=== PATIENT | female | born 1955 | race African-American/Black ===

== ENCOUNTER 2019-08-26 16:27 | Inpatient (IN) | payer MEDICARE, MEDICAID ==
[~2019-08-26] VITALS: Ht 162.6 cm; Wt 67.8 kg
[2019-08-26] MEDS ORDERED: KETOROLAC 30MG/ML VIAL IV ONE (17:00)
[2019-08-26 17:15] LABS: BASOPHILS % 0.8 % (0.0-2.0); EOSINOPHILS % 1.9 % (0.0-5.0); HEMATOCRIT. 44.9 % (36.0-48.0); HEMOGLOBIN. 14.7 g/dL (12.0-16.0); LYMPHOCYTES % 39.3 % (20.0-50.0); MEAN CORPUSCULAR HEMOGLOBIN 28.2 pg (28.0-32.0); MEAN CORPUSCULAR VOLUME 86.1 fL (81.0-99.0); MEAN PLATELET VOLUME 8.1 fl (7.4-10.4); MONOCYTES % 4.9 % (2.0-8.0); NEUTROPHILS % 53.1 % (40.0-76.0); PLATELET 286 x1000/uL (130-400); RED BLOOD CELL COUNT 5.22 mill/uL (4.2-5.4); RED CELL DISTRIBUTION WIDTH 13.5 % (11.6-14.6)
[2019-08-26 17:22] LABS: CHLORIDE 108 mEq/L (98-107)
[2019-08-26 17:28] LABS: PARTIAL THROMBOPLASTIN TIME 30.3 sec (23.4-31.0); PROTHROMBIN TIME 10.1 sec (9.6-11.0)
[2019-08-26 17:35] LABS: T4 FREE 1.13 ng/dL (0.76-1.46)
[2019-08-26] MEDS ORDERED: POTASSIUM CHLORIDE 20MEQ TABLET SR PO ONE (18:00)
[2019-08-26] MEDS ORDERED: ENOXAPARIN 60MG/0.6ML SYR SUBCUT ONE (18:15)
[2019-08-26] MEDS ORDERED: NITROGLYCERIN OINT 1GM/INCH UDPKT TD ONE (18:15)
[2019-08-26 20:30] VITALS: BP 129/63
[2019-08-26] MEDS ORDERED: DIPHENHYDRAMINE 50MG/ML VIAL IV PRN (20:45)
[2019-08-26] MEDS ORDERED: MAGNESIUM/ALUMINUM HYDROXIDE/SIMETHICONE 30ML UDC PO PRN (20:45)
[2019-08-26] MEDS ORDERED: ONDANSETRON HCL 4MG/2ML INJ IV PRN (20:45)
[2019-08-26] MEDS ORDERED: DOCUSATE SODIUM 100MG CAPSULE PO PRN (20:45)
[2019-08-26] MEDS ORDERED: CLONIDINE 0.1MG TABLET PO PRN (20:45)
[2019-08-26] MEDS ORDERED: IPRATROPIUM/ALBUTEROL 0.5-3(2.5)MG/3ML NEB HHN PRN (20:45)
[2019-08-26 21:32] VITALS: BP 129/63
[2019-08-26] MEDS ORDERED: ERGOCALCIFEROL 50000UNITS CAPSULE PO SCH (22:00)
[2019-08-27] VITALS: BP 116/47
[2019-08-27] MEDS: ATORVASTATIN CALCIUM 20MG TABLET PO SCH ×2 (00:24→21:15)
[2019-08-27] MEDS: ENOXAPARIN 40MG/0.4ML SYR SUBCUT SCH ×2 (00:25→21:14)
[2019-08-27] MEDS: HYDROCODONE/ACETAMINOPHEN 5/325MG TABLET PO PRN ×2 (03:55→11:19)
[2019-08-27 07:15] LABS: BASOPHILS % 0.4 % (0.0-2.0); EOSINOPHILS % 3.5 % (0.0-5.0); HEMATOCRIT. 37.1 % (36.0-48.0); LYMPHOCYTES % 52.7 % (20.0-50.0); MEAN CORPUSCULAR VOLUME 86.7 fL (81.0-99.0); MEAN PLATELET VOLUME 8.1 fl (7.4-10.4); MONOCYTES % 8.2 % (2.0-8.0); NEUTROPHILS % 35.2 % (40.0-76.0); PLATELET 232 x1000/uL (130-400); RED BLOOD CELL COUNT 4.28 mill/uL (4.2-5.4); RED CELL DISTRIBUTION WIDTH 13.2 % (11.6-14.6)
[2019-08-27 08:00] VITALS: BP 134/63
[2019-08-27 09:06] LABS: CHLORIDE 113 mEq/L (98-107)
[2019-08-27 09:13] LABS: LDL CHOLESTEROL 55 mg/dL (5-100)
[2019-08-27 09:14] LABS: HDL CHOLESTEROL 38 mg/dL (40-59)
[2019-08-27 09:15] LABS: T4 FREE 0.99 ng/dL (0.76-1.46)
[2019-08-27 09:18] LABS: PHOSPHORUS 4.2 mg/dL (2.5-4.9)
[2019-08-27] MEDS: HYDROCHLOROTHIAZIDE 25MG TABLET PO SCH (09:43)
[2019-08-27] MEDS: BENAZEPRIL 10MG TABLET PO SCH (09:44)
[2019-08-27 12:00] VITALS: BP 131/45
[2019-08-27] MEDS: ASPIRIN 81MG EC TABLET PO SCH (14:40)
[2019-08-27] MEDS: DILTIAZEM HCL 30MG TABLET PO SCH ×2 (14:40→21:14)
[2019-08-27 16:00] VITALS: BP 156/77
[2019-08-27 18:26] LABS: *AMPHETAMINES SCREEN URINE NEGATIVE (NEGATIVE); *BARBITURATES SCREEN URINE NEGATIVE (NEGATIVE); *BENZODIAZEPINES SCREEN URINE NEGATIVE (NEGATIVE)
[2019-08-27 18:27] LABS: *COCAINE SCREEN URINE NEGATIVE (NEGATIVE); CANNABINOID URINE SCREEN NEGATIVE (NEGATIVE); METHADONE URINE SCREEN NEGATIVE (NEGATIVE); OPIATES URINE SCREEN PRESUMTIVE POSITIVE (NEGATIVE); PHENCYCLIDINE URINE SCREEN NEGATIVE (NEGATIVE)
[2019-08-27 20:00] VITALS: BP 149/78
[2019-08-27] MEDS: METRONIDAZOLE 500MG TABLET PO SCH (21:15)
[2019-08-27] MEDS: ACETAMINOPHEN 325MG TABLET PO PRN (21:15)
[2019-08-28 00:28] VITALS: BP 145/82
[2019-08-28 04:00] VITALS: BP 145/79
[2019-08-28] MEDS: DILTIAZEM HCL 30MG TABLET PO SCH ×3 (06:01→21:06)
[2019-08-28 07:00] LABS: BASOPHILS % 0.3 % (0.0-2.0); HEMATOCRIT. 36.8 % (36.0-48.0); HEMOGLOBIN. 12.2 g/dL (12.0-16.0); LYMPHOCYTES % 46.6 % (20.0-50.0); MEAN CORPUSCULAR HEMOGLOBIN 28.2 pg (28.0-32.0); MEAN CORPUSCULAR VOLUME 85.4 fL (81.0-99.0); MEAN PLATELET VOLUME 8.5 fl (7.4-10.4); MONOCYTES % 9.8 % (2.0-8.0); NEUTROPHILS % 39.3 % (40.0-76.0); PLATELET 238 x1000/uL (130-400); RED BLOOD CELL COUNT 4.32 mill/uL (4.2-5.4); RED CELL DISTRIBUTION WIDTH 13.4 % (11.6-14.6)
[2019-08-28 07:11] LABS: CHLORIDE 111 mEq/L (98-107)
[2019-08-28 08:35] VITALS: BP 142/71
[2019-08-28] MEDS: BENAZEPRIL 10MG TABLET PO SCH ×2 (09:38→21:06)
[2019-08-28] MEDS: METRONIDAZOLE 500MG TABLET PO SCH ×2 (09:38→21:05)
[2019-08-28] MEDS: NICOTINE 14MG PATCH TD SCH (09:38)
[2019-08-28] MEDS: ASPIRIN 81MG EC TABLET PO SCH (09:38)
[2019-08-28] MEDS: HYDROCHLOROTHIAZIDE 25MG TABLET PO SCH (09:41)
[2019-08-28 12:19] VITALS: BP 153/75
[2019-08-28] MEDS ORDERED: MAGNESIUM 1 G PREMIX 100 ML IV NR (12:45)
[2019-08-28 15:59] VITALS: BP 148/65
[2019-08-28] MEDS: ACETAMINOPHEN 325MG TABLET PO PRN (16:29)
[2019-08-28 20:44] VITALS: BP 151/81
[2019-08-28] MEDS: IPRATROPIUM/ALBUTEROL 0.5-3(2.5)MG/3ML NEB HHN SCH (21:00)
[2019-08-28] MEDS: ATORVASTATIN CALCIUM 20MG TABLET PO SCH (21:05)
[2019-08-28] MEDS: ENOXAPARIN 40MG/0.4ML SYR SUBCUT SCH (21:05)
[2019-08-29] VITALS: BP 138/63
[2019-08-29] MEDS: IPRATROPIUM/ALBUTEROL 0.5-3(2.5)MG/3ML NEB HHN SCH ×4 (01:15→12:33)
[2019-08-29 04:00] VITALS: BP 138/65
[2019-08-29] MEDS: DILTIAZEM HCL 30MG TABLET PO SCH ×2 (05:12→13:23)
[2019-08-29 07:44] LABS: BASOPHILS % 0.4 % (0.0-2.0); EOSINOPHILS % 3.1 % (0.0-5.0); HEMATOCRIT. 40.5 % (36.0-48.0); HEMOGLOBIN. 13.3 g/dL (12.0-16.0); LYMPHOCYTES % 49.1 % (20.0-50.0); MEAN CORPUSCULAR HEMOGLOBIN 28.4 pg (28.0-32.0); MEAN CORPUSCULAR VOLUME 86.2 fL (81.0-99.0); MEAN PLATELET VOLUME 8.5 fl (7.4-10.4); MONOCYTES % 8.7 % (2.0-8.0); NEUTROPHILS % 38.7 % (40.0-76.0); PLATELET 251 x1000/uL (130-400); RED CELL DISTRIBUTION WIDTH 13.4 % (11.6-14.6)
[2019-08-29 08:00] LABS: CHLORIDE 108 mEq/L (98-107)
[2019-08-29 08:40] VITALS: BP 136/76
[2019-08-29] MEDS: NICOTINE 14MG PATCH TD SCH (09:25)
[2019-08-29] MEDS: BENAZEPRIL 10MG TABLET PO SCH (09:26)
[2019-08-29] MEDS: ASPIRIN 81MG EC TABLET PO SCH (09:26)
[2019-08-29] MEDS: METRONIDAZOLE 500MG TABLET PO SCH (09:26)
[2019-08-29] MEDS: HYDROCHLOROTHIAZIDE 25MG TABLET PO SCH (09:26)
[2019-08-29 12:03] VITALS: BP 152/69
[2019-08-29] MEDS ORDERED: ATOR20TA PO (12:21)
[2019-08-29] MEDS ORDERED: NICO-681 TD (12:21)
[2019-08-29] MEDS ORDERED: DILT30TA38 PO (12:21)
[2019-08-29] MEDS ORDERED: ASPI-1158 PO (12:21)
[2019-08-29] MEDS ORDERED: LOT10 PO (12:21)
[2019-08-29] MEDS ORDERED: HYDR25TA PO (12:21)
[2019-08-29] MEDS ORDERED: POTASSIUM CHLORIDE 20MEQ TABLET SR PO SCH (12:30)
[2019-08-29 12:43] VITALS: BP 152/69
== END 2019-08-29 14:13 | disposition home or self-care (01) | DRG 310 ==
LOC: ER 16:27 → EDBEDREQ 17:46 → 6WST 18:05 → EDBEDREQ 18:08 → ENRESERV 20:12
PROVIDERS: ADMIT Family Medicine Adult Medicine; ATTEND Family Medicine Adult Medicine
DX: I48.0 Paroxysmal atrial fibrillation (principal); E83.42 Hypomagnesemia; E87.6 Hypokalemia; I10 Essential (primary) hypertension; Z72.0 Tobacco use; Z86.73 Personal history of transient ischemic attack (TIA), and cerebral infarction without residual deficits; Z82.49 Family history of ischemic heart disease and other diseases of the circulatory system; J43.9 Emphysema, unspecified; Z88.0 Allergy status to penicillin; Z71.6 Tobacco abuse counseling
CPT/HCPCS: 36415; 71045; 80048; 80061; 80305; 83735; 83880; 84100; 84439; 84443; 84481; 84484; 93005; 93306; 93970; 94640; 99285; J1650; J1885; J3475; J7620

== ENCOUNTER 2023-04-15 08:42 | Emergency (ER) | payer MEDICARE, MEDICAID ==
[~2023-04-15] VITALS: Ht 162.6 cm; Wt 66.4 kg
[~2023-04-15 08:42] MED LIST: ASPI-1406 PO; ATOR20TA PO; BENA10TA75 PO; DILT30TA37 PO; HYDR25TA PO; NICO-681 TD
[2023-04-15 09:48] LABS: BASOPHILS % 0.5 % (0.0-2.0); HEMATOCRIT. 40.1 % (36.0-48.0); HEMOGLOBIN. 13.3 g/dL (12.0-16.0); LYMPHOCYTES % 33.1 % (20.0-50.0); MEAN CORPUSCULAR HEMOGLOBIN 28.5 pg (28.0-32.0); MEAN CORPUSCULAR VOLUME 86.2 fL (81.0-99.0); MEAN PLATELET VOLUME 8.2 fl (7.4-10.4); MONOCYTES % 8.8 % (2.0-8.0); NEUTROPHILS % 55.6 % (40.0-76.0); PLATELET 265 x1000/uL (130-400); RED BLOOD CELL COUNT 4.66 mill/uL (4.2-5.4); RED CELL DISTRIBUTION WIDTH 13.6 % (11.6-14.6)
[2023-04-15 09:55] LABS: CHLORIDE 108 mEq/L (98-107)
[2023-04-15 10:00] LABS: INR 0.9; PARTIAL THROMBOPLASTIN TIME 28.7 sec (23.4-31.0); PROTHROMBIN TIME 10.2 sec (9.6-11.0)
[2023-04-15 10:03] LABS: CLARITY URINE CLEAR (CLEAR); COLOR URINE YELLOW (YELLOW); KETONES URINE NEGATIVE (NEGATIVE); LEUKOCYTE ESTERASE URINE NEGATIVE (NEGATIVE); NITRITE URINE NEGATIVE (NEGATIVE); OCCULT BLOOD URINE NEGATIVE (NEGATIVE); PROTEIN URINE NEGATIVE (NEGATIVE); SPECIFIC GRAVITY URINE 1.019 (1.005-1.030)
[2023-04-15] MEDS ORDERED: METHYLPREDNISOLONE SOD SUCC 125 MG/2 ML VIAL IV STA (11:01)
[2023-04-15] MEDS ORDERED: IPRATROPIUM BROMIDE (0.02%) 0.5MG/2.5ML NEB HHN STA (11:01)
[2023-04-15] MEDS: ALBUTEROL (0.083%) 2.5MG/3ML NEB HHN SCH ×3 (11:36→13:06)
[2023-04-15] MEDS ORDERED: P20 MT (14:05)
[2023-04-15] MEDS ORDERED: ALBU6.7H3 INH (14:07)
[2023-04-15 14:40] VITALS: BP 139/72
== END 2023-04-15 14:42 | disposition home or self-care (01) ==
LOC: ER 08:42
DX: J44.1 Chronic obstructive pulmonary disease with (acute) exacerbation (principal); I48.91 Unspecified atrial fibrillation; I10 Essential (primary) hypertension; Z86.73 Personal history of transient ischemic attack (TIA), and cerebral infarction without residual deficits; Z79.899 Other long term (current) drug therapy; Z88.0 Allergy status to penicillin
CPT/HCPCS: 36415; 71045; 80053; 81003; 84484; 85025; 85610; 85730; 93005; 94640; 96374; 99285; J2930

== ENCOUNTER 2023-05-13 22:24 | Emergency (ER) | payer MEDICARE, MEDICAID ==
[~2023-05-13] VITALS: Ht 162.6 cm; Wt 70.0 kg
[~2023-05-13 22:24] MED LIST changes: +ALBU6.7H3 INH; +P20 MT
[2023-05-13 22:25] VITALS: BP 183/77; RESP 18; TEMP 98.7; O2SAT 100
[2023-05-13 22:32] VITALS: PULSE 69
== END 2023-05-13 23:30 | disposition left against medical advice (07) ==
LOC: ER 22:24
DX: Z53.21 Procedure and treatment not carried out due to patient leaving prior to being seen by health care provider (principal)
CPT/HCPCS: 99281

== ENCOUNTER 2023-07-25 03:14 | Inpatient (IN) | payer MEDICARE, MEDICAID ==
[2023-07-25] VITALS (10 sets, daily range): BP systolic 131–162; BP diastolic 74–91; PULSE 63–95; RESP 17–26; TEMP 98.1–99; O2SAT 93–96
[~2023-07-25] VITALS: Ht 162.6 cm; Wt 70.3 kg
[2023-07-25] MEDS ORDERED: METHYLPREDNISOLONE SOD SUCC 125MG/2ML (ACT-O-VIAL) IV STA (03:39)
[2023-07-25] MEDS ORDERED: IPRATROPIUM BROMIDE (0.02%) 0.5MG/2.5ML NEB HHN STA (03:39)
[2023-07-25] MEDS ORDERED: MAGNESIUM 2 G PREMIX 50 ML IV ONE (03:45)
[2023-07-25] MEDS: ALBUTEROL (0.083%) 2.5MG/3ML NEB HHN SCH ×3 (04:07→04:55)
[2023-07-25 04:57] LABS: BASOPHILS % 0.3 % (0.0-2.0); EOSINOPHILS % 1.9 % (0.0-5.0); HEMATOCRIT. 39.4 % (36.0-48.0); HEMOGLOBIN. 12.9 g/dL (12.0-16.0); LYMPHOCYTES % 45.3 % (20.0-50.0); MEAN CORPUSCULAR HEMOGLOBIN 27.9 pg (28.0-32.0); MEAN CORPUSCULAR HGB CONC 32.8 g/dL (31.0-37.0); MEAN CORPUSCULAR VOLUME 85.1 fL (81.0-99.0); MEAN PLATELET VOLUME 8.3 fl (7.4-10.4); MONOCYTES % 8.1 % (2.0-8.0); NEUTROPHILS % 44.4 % (40.0-76.0); PLATELET 243 x1000/uL (130-400); RED BLOOD CELL COUNT 4.63 mill/uL (4.2-5.4); RED CELL DISTRIBUTION WIDTH 13.5 % (11.6-14.6); WHITE BLOOD COUNT 5.8 x1000/uL (4.5-11.0)
[2023-07-25] MEDS ORDERED: DOCUSATE SODIUM 100MG CAPSULE PO PRN (05:00)
[2023-07-25] MEDS ORDERED: CLONIDINE 0.1MG TABLET PO PRN (05:00)
[2023-07-25] MEDS ORDERED: HYDROCODONE/ACETAMINOPHEN 5/325MG TABLET PO PRN (05:00)
[2023-07-25] MEDS ORDERED: IPRATROPIUM/ALBUTEROL 0.5-3(2.5)MG/3ML NEB HHN PRN (05:00)
[2023-07-25] MEDS ORDERED: PANTOPRAZOLE SODIUM 40 MG/VIAL IV NR ×2 (05:00→10:15)
[2023-07-25] MEDS ORDERED: GUAIFENESIN 200MG/10ML SUGAR FREE UDC PO PRN (05:00)
[2023-07-25] MEDS ORDERED: ONDANSETRON HCL 4MG/2ML INJ IV PRN (05:00)
[2023-07-25] MEDS ORDERED: ACETAMINOPHEN 325MG TABLET PO PRN ×2 (05:00)
[2023-07-25] MEDS ORDERED: MAGNESIUM/ALUMINUM HYDROXIDE/SIMETHICONE 30ML UDC PO PRN (05:00)
[2023-07-25] MEDS ORDERED: METHYLPREDNISOLONE SOD SUCC 125MG/2ML (ACT-O-VIAL) IV SCH (05:00)
[2023-07-25 05:01] LABS: CHLORIDE 108 mEq/L (98-107); INDEX HEMOLYSI 1 (1-3); INDEX ICTERIC 1 (1-4); INDEX LIPEMIC 1 (1-3); POTASSIUM 3.4 mEq/L (3.5-5.1); SODIUM 140 mEq/L (136-145)
[2023-07-25 05:12] LABS: ALANINE AMINOTRANSFERASE 21 IU/L (13-61); ALBUMIN 3.6 g/dL (3.4-5.0); ASPARTATE AMINOTRANSFERASE 21 IU/L (15-37); BILIRUBIN TOTAL 0.5 mg/dL (0.1-1.0); CALCIUM 8.9 mg/dL (8.5-10.1); CARBON DIOXIDE 27 mEq/L (21-32); CREATININE 0.7 mg/dL (0.6-1.3); GLUCOSE 112 mg/dL (70-105); NT PRO B-TYPE NATRIURETIC PEP 452 pg/mL (5-125); PROTEIN TOTAL 7.2 g/dL (6.0-8.3); TROPONIN I HIGH SENSITIVITY 15 ng/L (<54); UREA NITROGEN BLOOD 15 mg/dL (7-21)
[2023-07-25] MEDS ORDERED: HYDRALAZINE HCL 25MG TABLET PO SCH (06:00)
[2023-07-25] MEDS ORDERED: AMLODIPINE 5MG TABLET PO SCH (06:00)
[2023-07-25] MEDS ORDERED: POTASSIUM CHLORIDE 20MEQ TABLET SR PO NR ×2 (06:15→10:15)
[2023-07-25] MEDS ORDERED: HYDRALAZINE 20MG/ML VIAL IV NR (06:30)
[2023-07-25 06:52] LABS: *AMPHETAMINES SCREEN URINE NEGATIVE (NEGATIVE); *BARBITURATES SCREEN URINE NEGATIVE (NEGATIVE); *BENZODIAZEPINES SCREEN URINE NEGATIVE (NEGATIVE); *COCAINE SCREEN URINE NEGATIVE (NEGATIVE); CANNABINOID URINE SCREEN NEGATIVE (NEGATIVE); ECSTASY MDMA SCREEN URINE NEGATIVE (NEGATIVE); METHADONE URINE SCREEN NEGATIVE (NEGATIVE); OPIATES URINE SCREEN NEGATIVE (NEGATIVE); PHENCYCLIDINE URINE SCREEN NEGATIVE (NEGATIVE)
[2023-07-25 07:13] LABS: CLARITY URINE CLEAR (CLEAR); COLOR URINE PALE YELLOW (YELLOW); GLUCOSE URINE NEGATIVE (NEGATIVE); KETONES URINE NEGATIVE (NEGATIVE); LEUKOCYTE ESTERASE URINE TRACE (NEGATIVE); NITRITE URINE NEGATIVE (NEGATIVE); OCCULT BLOOD URINE NEGATIVE (NEGATIVE); PROTEIN URINE NEGATIVE (NEGATIVE); SPECIFIC GRAVITY URINE 1.009 (1.005-1.030); UROBILINOGEN URINE 0.2 E.U./dL (0.2-1.0)
[2023-07-25 07:14] LABS: BACTERIA URINE NONE SEEN; RBC URINE NONE SEEN /hpf (0-2); SQUAMOUS EPITHELIAL CELL URINE NONE SEEN /lpf (RARE/1+); WBC URINE 0-2 /hpf (0-2)
[2023-07-25] MEDS ORDERED: HYDRALAZINE 20MG/ML VIAL IV PRN (07:15)
[2023-07-25 07:46] LABS: CREATINE KINASE MB FRACTION 1.6 ng/mL (0.5-3.6)
[2023-07-25] MEDS ORDERED: AZITHROMYCIN 500MG/250ML 250 ML IV SCH (09:00)
[2023-07-25] MEDS: HYDROCHLOROTHIAZIDE 25MG TABLET PO SCH (09:00)
[2023-07-25] MEDS: METOPROLOL TARTRATE 25MG TABLET PO SCH ×2 (09:00→16:48)
[2023-07-25] MEDS: NICOTINE 14MG PATCH TD SCH (09:00)
[2023-07-25] MEDS ORDERED: ENOXAPARIN 40MG/0.4ML SYR SUBCUT SCH (09:00)
[2023-07-25 16:13] LABS: CREATINE KINASE MB FRACTION 1.9 ng/mL (0.5-3.6)
[2023-07-25] MEDS: APIXABAN 5 MG TABLET PO SCH (16:48)
[2023-07-25] MEDS: IPRATROPIUM/ALBUTEROL 0.5-3(2.5)MG/3ML NEB HHN SCH ×2 (17:16→20:27)
[2023-07-25] MEDS: BUDESONIDE 0.5MG/2ML NEB HHN SCH (20:27)
[2023-07-26] VITALS (9 sets, daily range): BP systolic 126–165; BP diastolic 60–91; PULSE 57–87; RESP 17–28; TEMP 98–99; O2SAT 97–99
[2023-07-26] MEDS: IPRATROPIUM/ALBUTEROL 0.5-3(2.5)MG/3ML NEB HHN SCH ×4 (01:41→21:02)
[2023-07-26 06:46] LABS: BASOPHILS % 0.2 % (0.0-2.0); HEMATOCRIT. 37.8 % (36.0-48.0); HEMOGLOBIN. 12.6 g/dL (12.0-16.0); LYMPHOCYTES % 23.8 % (20.0-50.0); MEAN CORPUSCULAR HEMOGLOBIN 28.5 pg (28.0-32.0); MEAN CORPUSCULAR HGB CONC 33.4 g/dL (31.0-37.0); MEAN CORPUSCULAR VOLUME 85.4 fL (81.0-99.0); MEAN PLATELET VOLUME 8.6 fl (7.4-10.4); PLATELET 249 x1000/uL (130-400); RED BLOOD CELL COUNT 4.43 mill/uL (4.2-5.4); RED CELL DISTRIBUTION WIDTH 13.3 % (11.6-14.6); WHITE BLOOD COUNT 9.5 x1000/uL (4.5-11.0)
[2023-07-26 06:52] LABS: CHLORIDE 104 mEq/L (98-107); INDEX HEMOLYSI 1 (1-3); INDEX ICTERIC 1 (1-4); INDEX LIPEMIC 1 (1-3); POTASSIUM 3.5 mEq/L (3.5-5.1); SODIUM 136 mEq/L (136-145)
[2023-07-26 07:06] LABS: ALANINE AMINOTRANSFERASE 22 IU/L (13-61); ALBUMIN 3.5 g/dL (3.4-5.0); ASPARTATE AMINOTRANSFERASE 15 IU/L (15-37); BILIRUBIN TOTAL 0.3 mg/dL (0.1-1.0); CARBON DIOXIDE 26 mEq/L (21-32); CHOLESTEROL 253 mg/dL (<200); CREATININE 0.8 mg/dL (0.6-1.3); GLUCOSE 149 mg/dL (70-105); HDL CHOLESTEROL 53 mg/dL (40-59); LDL CHOLESTEROL 189 mg/dL (5-100); PHOSPHORUS 3.6 mg/dL (2.5-4.9); T4 FREE 0.95 ng/dL (0.76-1.46); TRIGLYCERIDE 111 mg/dL (0-150); UREA NITROGEN BLOOD 27 mg/dL (7-21)
[2023-07-26] MEDS: BUDESONIDE 0.5MG/2ML NEB HHN SCH ×2 (07:44→21:02)
[2023-07-26] MEDS ORDERED: NALOXONE HCL 0.4MG/ML VIAL IV PRN (08:15)
[2023-07-26] MEDS ORDERED: AZITHROMYCIN 500MG in DEXTROSE 5% WATER 250ML IV SCH (09:30)
[2023-07-26] MEDS: APIXABAN 5 MG TABLET PO SCH ×2 (09:30→17:12)
[2023-07-26] MEDS: METHYLPREDNISOLONE SOD SUCC 40MG/ML (ACT-O-VIAL) IV SCH (09:31)
[2023-07-26] MEDS: HYDROCHLOROTHIAZIDE 25MG TABLET PO SCH (09:35)
[2023-07-26] MEDS: NICOTINE 14MG PATCH TD SCH (09:35)
[2023-07-26] MEDS: METOPROLOL TARTRATE 25MG TABLET PO SCH ×2 (09:35→17:13)
[2023-07-26 11:26] LABS: CHLORIDE 106 mEq/L (98-107); INDEX HEMOLYSI 1 (1-3); INDEX ICTERIC 1 (1-4); INDEX LIPEMIC 1 (1-3); POTASSIUM 3.2 mEq/L (3.5-5.1); SODIUM 138 mEq/L (136-145)
[2023-07-26 11:34] LABS: ALANINE AMINOTRANSFERASE 25 IU/L (13-61); ALBUMIN 3.4 g/dL (3.4-5.0); ASPARTATE AMINOTRANSFERASE 14 IU/L (15-37); BILIRUBIN TOTAL 0.4 mg/dL (0.1-1.0); CALCIUM 9.1 mg/dL (8.5-10.1); CARBON DIOXIDE 26 mEq/L (21-32); CREATININE 0.8 mg/dL (0.6-1.3); GLUCOSE 167 mg/dL (70-105); UREA NITROGEN BLOOD 26 mg/dL (7-21)
[2023-07-26] MEDS: LOSARTAN 25 MG TABLET PO SCH (12:52)
[2023-07-26] MEDS: AMLODIPINE 10MG TABLET PO SCH (12:52)
[2023-07-26] MEDS ORDERED: POTASSIUM CHLORIDE 20MEQ TABLET SR PO NR (15:30)
[2023-07-26] MEDS ORDERED: ATORVASTATIN CALCIUM 20MG TABLET PO SCH (21:00)
[2023-07-27] VITALS: BP 137/60; PULSE 67; RESP 17; TEMP 97.6
[2023-07-27 01:30] VITALS: PULSE 70; RESP 18; O2SAT 99
[2023-07-27] MEDS: IPRATROPIUM/ALBUTEROL 0.5-3(2.5)MG/3ML NEB HHN SCH ×2 (01:30→09:12)
[2023-07-27 04:00] VITALS: BP 167/90; PULSE 69; RESP 21; TEMP 97.8
[2023-07-27 07:36] LABS: BASOPHILS % 0.2 % (0.0-2.0); HEMATOCRIT. 39.4 % (36.0-48.0); HEMOGLOBIN. 13.2 g/dL (12.0-16.0); LYMPHOCYTES % 28.6 % (20.0-50.0); MEAN CORPUSCULAR HEMOGLOBIN 28.7 pg (28.0-32.0); MEAN CORPUSCULAR HGB CONC 33.5 g/dL (31.0-37.0); MEAN CORPUSCULAR VOLUME 85.6 fL (81.0-99.0); MEAN PLATELET VOLUME 8.7 fl (7.4-10.4); MONOCYTES % 7.3 % (2.0-8.0); NEUTROPHILS % 63.9 % (40.0-76.0); PLATELET 267 x1000/uL (130-400); RED CELL DISTRIBUTION WIDTH 13.8 % (11.6-14.6); WHITE BLOOD COUNT 11.3 x1000/uL (4.5-11.0)
[2023-07-27 08:00] VITALS: BP 160/83; PULSE 66; RESP 18; TEMP 97.7
[2023-07-27 08:10] LABS: CHLORIDE 103 mEq/L (98-107); INDEX HEMOLYSI 1 (1-3); INDEX ICTERIC 1 (1-4); INDEX LIPEMIC 1 (1-3); POTASSIUM 3.7 mEq/L (3.5-5.1); SODIUM 139 mEq/L (136-145)
[2023-07-27 08:18] LABS: ALANINE AMINOTRANSFERASE 28 IU/L (13-61); ALBUMIN 3.6 g/dL (3.4-5.0); ASPARTATE AMINOTRANSFERASE 16 IU/L (15-37); BILIRUBIN TOTAL 0.3 mg/dL (0.1-1.0); CALCIUM 9.4 mg/dL (8.5-10.1); CARBON DIOXIDE 27 mEq/L (21-32); CREATININE 0.7 mg/dL (0.6-1.3); GLUCOSE 149 mg/dL (70-105); PHOSPHORUS 2.3 mg/dL (2.5-4.9); PROTEIN TOTAL 7.4 g/dL (6.0-8.3); UREA NITROGEN BLOOD 21 mg/dL (7-21)
[2023-07-27] MEDS: NICOTINE 14MG PATCH TD SCH (09:04)
[2023-07-27] MEDS: METHYLPREDNISOLONE SOD SUCC 40MG/ML (ACT-O-VIAL) IV SCH (09:04)
[2023-07-27] MEDS: HYDROCHLOROTHIAZIDE 25MG TABLET PO SCH (09:05)
[2023-07-27] MEDS: LOSARTAN 25 MG TABLET PO SCH (09:05)
[2023-07-27] MEDS: AMLODIPINE 10MG TABLET PO SCH (09:05)
[2023-07-27] MEDS: APIXABAN 5 MG TABLET PO SCH (09:05)
[2023-07-27] MEDS: METOPROLOL TARTRATE 25MG TABLET PO SCH (09:05)
[2023-07-27] MEDS: BUDESONIDE 0.5MG/2ML NEB HHN SCH (09:12)
[2023-07-27 12:00] VITALS: BP 136/65; PULSE 67; RESP 18; TEMP 97.8
[2023-07-27 13:00] VITALS: BP 136/65; PULSE 67; TEMP 97.8; O2SAT 98
== END 2023-07-27 13:19 | disposition home or self-care (01) | DRG 190 ==
LOC: ER 03:14 → 3WST 04:47 → EDBEDREQ 04:53 → 3WST 07-26 08:17
PROVIDERS: ADMIT Hospitalist; ATTEND Hospitalist
DX: J44.1 Chronic obstructive pulmonary disease with (acute) exacerbation (principal); J96.00 Acute respiratory failure, unspecified whether with hypoxia or hypercapnia; I16.9 Hypertensive crisis, unspecified; E87.6 Hypokalemia; E78.5 Hyperlipidemia, unspecified; F17.210 Nicotine dependence, cigarettes, uncomplicated; Z20.822 Contact with and (suspected) exposure to COVID-19; F17.290 Nicotine dependence, other tobacco product, uncomplicated; I11.9 Hypertensive heart disease without heart failure; I16.0 Hypertensive urgency; I48.91 Unspecified atrial fibrillation; Z79.899 Other long term (current) drug therapy; Z86.73 Personal history of transient ischemic attack (TIA), and cerebral infarction without residual deficits; Z88.0 Allergy status to penicillin; Z99.81 Dependence on supplemental oxygen
CPT/HCPCS: 36415; 71045; 80053; 80061; 80305; 81003; 82550; 82553; 83036; 83735; 83880; 84100; 84439; 84443; 84484; 85025; 85379; 87426; 93005; 93306; 93970; 94640; 99291; C9113; C9803; J0456; J1650; J2920; J2930; J3475; J7060; J7626

== ENCOUNTER 2025-02-26 00:39 | Emergency (ER) | payer MEDICARE, MEDICAID ==
[~2025-02-26] VITALS: Ht 165.1 cm; Wt 64.0 kg
[~2025-02-26 00:39] MED LIST changes: +AMLO10TA80 PO; +APIX5TAB MT; -BENA10TA75 PO; +CALC-1042 PO; +CLOP-31 PO; -DILT30TA37 PO; +LIP40 PO; +LOSA50TA41 PO; +METO25TA6 PO; -P20 MT; +PROT40 MT
[2025-02-26 00:48] VITALS: O2SAT 98
[2025-02-26 01:20] VITALS: BP 130/74; PULSE 60; RESP 18; TEMP 36.8; O2SAT 98
[2025-02-26] MEDS ORDERED: ACETAMINOPHEN 325MG TABLET PO STA (02:53)
== END 2025-02-26 03:33 | disposition left against medical advice (07) ==
LOC: ER 00:39
DX: R51.9 Headache, unspecified (principal); H57.11 Ocular pain, right eye; Z53.21 Procedure and treatment not carried out due to patient leaving prior to being seen by health care provider; Y04.0XXA Assault by unarmed brawl or fight, initial encounter; Y93.89 Activity, other specified; Y92.89 Other specified places as the place of occurrence of the external cause; Y99.8 Other external cause status